=== PATIENT | male | born 1930 | race Caucasian/White ===

== ENCOUNTER 2017-08-16 12:04 | Emergency (ER) | payer MEDICARE, OTHER ==
--- NOTE | 2017-08-16 12:37 | ED ---
Lower Extremity Injury HPI - General Chief Complaint: Extremity Injury, Lower Stated Complaint: Fall-Knee Pain Time Seen by Provider: 08/16/17 12:18 Source: RN notes reviewed, old records reviewed, Caregiver Mode of arrival: wheelchair Limitations: altered mental status, physical limitation - History of Present Illness Initial Comments: Patient is an 86-year-old male with a history of dementia presents emergency Department with his [id number] and caregiver chief complaint of a fall yesterday. Patient ports and he fell on his right knee. Patient caregiver reports the EMS arrived at that time, patient was doing well. They did not bring him to the emergency Department. Patient's caregiver states that he is having difficulty ambulating today and a scheduled appointment with his primary care doctor. Primary care doctor encouraged him to come directly to the emergency department. Today patient's caregiver noted that he does have sepsis minor lacerations and bruising over his scalp. He is also had very difficult time ambulating with his walker. 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.Patient denies any recent fever, chills, shortness of breath, chest pain, back pain, abdominal pain, nausea vomiting, numbness or tingling, dysuria or hematuria, constipation or diarrhea, headaches or visual changes, or any other current symptoms - Related Data Home Medications Medication Instructions Recorded Confirmed Allopurinol [Zyloprim] 100 mg PO DAILY 05/18/14 08/16/17 Carvedilol [Coreg] 3.125 mg PO BID 05/18/14 08/16/17 Isosorbide Mononitrate ER [Imdur] 60 mg PO DAILY 05/18/14 08/16/17 Losartan Potassium [Cozaar] 50 mg PO DAILY 05/18/14 08/16/17 Nizatidine [Axid] 150 mg PO DAILY 05/18/14 08/16/17 Aricept 23 mg PO DAILY 07/17/16 08/16/17 Eluxadoline [Viberzi] 100 mg PO BID 07/17/16 08/16/17 Levothyroxine Sodium [Tirosint] 75 mcg PO DAILY 07/17/16 08/16/17 Memantine HCl [Namenda Xr] 28 mg PO DAILY 07/17/16 08/16/17 ALPRAZolam [Xanax] 0.25 mg PO HS 07/04/17 08/16/17 Dabigatran [Pradaxa] 75 mg PO BID 07/04/17 08/16/17 diphenhydrAMINE [Benadryl] 25 mg PO Q6H PRN 07/04/17 08/16/17 guaiFENesin [Mucinex] 600 mg PO Q12HR PRN 08/16/17 08/16/17 Previous Rx's Medication Instructions Recorded Cholestyramine (with Sugar) 378 mg PO BID PRN #10 mg 07/06/17 [Cholestyramine Powder] Ipratropium-Albuterol Nebulize 3 ml INHALATION RT-TID PRN #90 07/06/17 [Duoneb 0.5 mg-3 mg/3 ml Soln] ampul.neb QUEtiapine [SEROquel] 12.5 mg PO HS #30 tab 07/06/17 Acetaminophen-Codeine 300-30mg 1 tab PO Q4H PRN #15 tablet 08/16/17 [Tylenol #3] Allergies Allergy/AdvReac Type Severity Reaction Status Date / Time No Known Allergies Allergy Verified 08/16/17 13:32 Review of Systems ROS Statement: Those systems with pertinent positive or pertinent negative responses have been documented in the HPI. ROS Other: All systems not noted in ROS Statement are negative. Past Medical History Past Medical History: Atrial Fibrillation, Coronary Artery Disease (CAD), COPD, Dementia, Eye Disorder, GERD/Reflux, Hypertension, Memory Impairment, Neurologic Disorder, Osteoarthritis (OA), Prostate Disorder, Sleep Apnea/CPAP/ BIPAP, Thyroid Disorder, Vascular Disorder Additional Past Medical History / Comment(s): AAA, hypothyroidism, BPH, pulmonary hypertension, diverticulosis, gout, hemorrhoids History of Any Multi-Drug Resistant Organisms: None Reported Past Surgical History: Adenoidectomy, Bowel Resection, Cholecystectomy, Joint Replacement, Tonsillectomy Additional Past Surgical History / Comment(s): Macular surgery 5 the right eye , bilateral elbow surgery, bilateral knee surgery Past Anesthesia/Blood Transfusion Reactions: Previous Problems w/ Anesthesia Additional Past Anesthesia/Blood Transfusion Reaction / Comment(s): Difficulty coming out one time Past Psychological History: No Psychological Hx Reported Smoking Status: Former smoker Past Alcohol Use History: None Reported Past Drug Use History: None Reported - Past Family History Father Family Medical History: Coronary Artery Disease (CAD) Additional Family Medical History / Comment(s): All brothers 1 from cirrhosis, alcohol use, old age. Patient has one son who has osteoporosis and valvular heart disease Mother Family Medical History: Unable to Obtain ( during childbirth) Brother(s) Family Medical History: No Reported History, COPD Additional Family Medical History / Comment(s): 2 children one of them had valvular heart disease. General Exam - General Exam Comments Initial Comments: 86-year-old male. No distress. does show some signs of dementia. Limitations: altered mental status, physical limitation General appearance: alert, in no apparent distress Head exam: Absent: atraumatic (Patient has 2 small abrasions over the left parietal scalp.) Eye exam: Present: normal appearance, PERRL, EOMI. Absent: scleral icterus, conjunctival injection, periorbital swelling ENT exam: Present: normal exam, mucous membranes moist Neck exam: Present: normal inspection. Absent: tenderness, meningismus, lymphadenopathy Respiratory exam: Present: normal lung sounds bilaterally. Absent: respiratory distress, wheezes, rales, rhonchi, stridor Cardiovascular Exam: Present: regular rate, normal rhythm, normal heart sounds. Absent: systolic murmur, diastolic murmur, rubs, gallop, clicks GI/Abdominal exam: Present: soft, normal bowel sounds. Absent: distended, tenderness, guarding, rebound, rigid Extremities exam: Present: normal inspection, full ROM, normal capillary refill. Absent: tenderness, pedal edema, joint swelling, calf tenderness Right Upper Leg exam: Present: normal inspection, full ROM Knee exam: Present: tenderness (over alteral knee), swelling. Absent: normal inspection, full ROM Lower Leg exam: Present: normal inspection, full ROM Ankle exam: Present: tenderness, swelling. Absent: normal inspection, full ROM Foot/Toe exam: Present: normal inspection, full ROM Neurovascular tendon exam: Present: no vascular compromise Back exam: Present: normal inspection Neurological exam: Present: alert, oriented X3, CN II-XII intact Psychiatric exam: Present: normal affect, normal mood Skin exam: Present: warm, dry, intact, normal color. Absent: rash Course Vital Signs 08/16/17 08/16/17 08/16/17 12:10 14:03 15:51 Temperature 97.2 F L 97.4 F L Pulse Rate 59 L 54 L 74 Respiratory 18 16 18 Rate Blood Pressure 144/75 150/75 166/94 O2 Sat by Pulse 98 97 95 Oximetry Procedures - Orthopedic Splinting/Casting Injury #1 Side: right Lower Extremity Injury Location: knee Lower Extremity Immobilizer: knee immobilizer Other Orthopedic Equipment: crutches, walker Additional Comments: is reevaluated at the immobilizer applied and is neurovascularly intact. Medical Decision Making - Medical Decision Making 86-year-old male multiple comorbidities including dementia chief complaint of falling last night, minor head injury and complains of right knee pain. Patient 's right knee is swollen and tender to touch. X-ray shows evidence of a proximal fibular head fracture. CT brain is negative for any acute process, C- spine is a frail paralysis. Ankles also obtained and is negative for any abnormalities. At this time I discussed with Dr. Najera. Recommend calling orthopedics. [facility] with [facility]. Recommended putting the patient in a knee immobilizer. He does ambulate with a walker. Discussed that I write the patient for short course of pain medicine, discuss needs follow-up with Dr. Eduardo his embroidery specialist due to care of his knees many years ago. Patient agrees treatment plan will comply. Caregiver understands treatment plan. Return parameters were discussed. - Lab Data Lab Results 08/16/17 Range/Units 15:00 Urine Color Yellow Urine Appearance Clear (Clear) Urine pH 6.5 (5.0-8.0) Ur Specific [place] 1.010 (1.001-1.035) Urine Protein Trace H (Negative) Urine Glucose (UA) Negative (Negative) Urine Ketones Negative (Negative) Urine Blood Negative (Negative) Urine Nitrite Negative (Negative) Urine Bilirubin Negative (Negative) Urine Urobilinogen <2.0 (<2.0) mg/dL Ur Leukocyte Esterase Negative (Negative) - Radiology Data Radiology results: report reviewed Hairline nondisplaced fracture involving the head of the fibula. Small suprapatellar bursal fluid collection noted. X-ray shows no acute fracture dislocation of the right ankle. CT brain shows age-related atrophy can squat small vessel ischemic change without acute intracranial process seen at this time. Cervical spine shows no evidence of acute fracture or subluxation. Disposition Clinical Impression: Fracture, fibula, proximal, Fall, Minor head injury Disposition: HOME SELF-CARE Condition: Good Instructions: Leg Fracture (ED) Additional Instructions: Patient denies follow-up with embroidery specialist within the next 1-2 days. Patient needs to remain in the knee immobilizer except for sleeping. Patient should return to the emergency department if any alarming signs or symptoms occur. Prescriptions: Acetaminophen-Codeine 300-30mg [Tylenol #3] 1 tab PO Q4H PRN #15 tablet PRN Reason: Pain Referrals: Chhaya Barboza MD [Primary Care Provider] - 1-2 days Sherman Eduardo DO [Doctor of Osteopathic Medicine] - 1-2 days Time of Disposition: 15:43
--- NOTE | 2017-08-16 13:37 | CT ---
EXAMINATION TYPE: CT brain [facility] DATE OF EXAM: 08/16/2017 COMPARISON: May 22, 2010 HISTORY: Fall CT DLP: 1434.[address] of the brain was performed. The ventricles, basal cisterns and sulci overlying the cerebral convexities demonstrate moderate enla rgement. There is no evidence for intracranial hemorrhage or sulcal effacement. There is decreased attenuatio n about the periventricular white matter and deep white matter of both cerebral hemispheres, compatib le with chronic small vessel ischemia. No mass effects are seen. Basilar artery dolichoectasia. If symptoms persist consider MRI. Osseous calvarium is intact. IMPRESSION: 1. Age related atrophic and chronic small vessel ischemic change without acute intracranial process seen at this time. CT Cervical Spine: Unenhanced CT of the cervical spine was performed with bone and soft tissue window settings submitted . Coronal and sagittal reconstruction is obtained. There is normal alignment and prevertebral soft tissues. No evidence for acute cervical fracture . Se ten multilevel degenerative disc disease and spondylosis. Biapical scarring. IMPRESSION: 1. No evidence for acute fracture or subluxation of the cervical spine.
--- NOTE | 2017-08-16 14:00 | XR ---
EXAMINATION TYPE: XR knee complete RT DATE OF EXAM: 08/16/2017 COMPARISON: NONE HISTORY: Pain TECHNIQUE: Four views are submitted. FINDINGS: Postsurgical changes seen with vascular calcifications. There is a linear lucency through the neck of the fibula suspicious for hairline nondisplaced fracture. Soft tissue ossification noted around the patella and there is a small suprapatellar bursal fluid collection. IMPRESSION: 1. Findings are compatible with a hairline nondisplaced fracture involving the head of the fibula. 2. Small suprapatellar bursal fluid collection
--- NOTE | 2017-08-16 14:00 | XR ---
EXAMINATION TYPE: XR ankle complete RT DATE OF EXAM: 08/16/2017 CLINICAL HISTORY: Trip and fall injury with pain. TECHNIQUE: Frontal, lateral and oblique images of the right ankle are obtained. COMPARISON: None. FINDINGS: [place] osseous structures are demineralized which is noted to lower radiographic sensitivit y. There is no acute fracture/dislocation evident in the right ankle. The ankle mortise appears with in normal limits. Vascular calcification and soft tissue is seen. There is mild diffuse subcutaneous edema without suspicious soft tissue swelling. There is small to moderate size inferior calcaneal sp ur noted. IMPRESSION: There is no acute fracture or dislocation in the right ankle.
[2017-08-16 15:10] LABS: Appearance,Urine Clear (Clear); Bilirubin,Urine Negative (Negative); Glucose,Urine (UA) Negative (Negative); Ketones,Urine Negative (Negative); Leukocyte Esterase,Urine Negative (Negative); Nitrite,Urine Negative (Negative); PH, Urine 6.5 (5.0-8.0); Protein,Urine Trace (Negative); UA Billing (MACRO vs. MICRO) CHEM; Urobilinogen,Urine <2.0 mg/dL (<2.0)
[2017-08-16] MEDS ORDERED: ACET/COD 300 MG/30 MG STARTER PACK 6 TAB BTL PO STA (15:43)
[2017-08-16 15:54] VITALS: BP 166/94; PULSE 74; RESP 18; TEMP 97.4
== END 2017-08-16 15:54 | disposition home or self-care (01) ==
LOC: EC 12:04
DX: S82.831A Other fracture of upper and lower end of right fibula, initial encounter for closed fracture (principal); S09.90XA Unspecified injury of head, initial encounter; I48.91 Unspecified atrial fibrillation; I25.10 Atherosclerotic heart disease of native coronary artery without angina pectoris; J44.9 Chronic obstructive pulmonary disease, unspecified; K21.9 Gastro-esophageal reflux disease without esophagitis; I10 Essential (primary) hypertension; M19.90 Unspecified osteoarthritis, unspecified site; E07.9 Disorder of thyroid, unspecified; G47.30 Sleep apnea, unspecified; Z99.89 Dependence on other enabling machines and devices; N40.0 Benign prostatic hyperplasia without lower urinary tract symptoms; Z96.653 Presence of artificial knee joint, bilateral; Z87.891 Personal history of nicotine dependence; Z79.899 Other long term (current) drug therapy; W01.0XXA Fall on same level from slipping, tripping and stumbling without subsequent striking against object, initial encounter
CPT/HCPCS: 70450; 72125; 81003; 99284